=== PATIENT | male | born 1995 | race Caucasian/White ===

== ENCOUNTER 2025-05-29 17:51 | Emergency (ER) | payer OTHER, SELFPAY ==
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
[2025-05-29 17:49] VITALS: BP 141/94; PULSE 112; RESP 16; TEMP 36.6; O2SAT 97
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
[2025-05-29 18:27] LABS: Hematocrit 42.9 % (42.0-52.0); Hemoglobin 14.5 g/dL (14.0-18.0); Immature Granulocyte Percent A 0.7 % (0-0.5); Lymphocytes Absolute Auto 2.88 K/mm3 (0.9-3.2); Mean Corpuscular HGB Conc 33.8 g/dl (32-36); Mean Corpuscular Hemoglobin 29.8 pg (26-34); Mean Corpuscular Volume 88.3 fl (80-100); Nucleated Red Blood Cells Absolute Auto 0.000 K/mm3 (0.0-0.012); Nucleated Red Blood Cells Perc 0.0 % (0.0-0.2); Platelet Count Result 282 k/mm3 (150-375); Red Blood Count 4.86 M/mm3 (4.6-6.20); White Blood Count 10.2 K/mm3 (4.5-10.0)
[2025-05-29 18:36] LABS: Alanine Aminotransferase 57 U/L (6-50); Albumin Level 4.6 g/dL (3.5-5.1); Alkaline Phosphatase 83 U/L (38-126); Anion Gap 12 mmol/L (4-12); Aspartate Amino Transferase 41 U/L (17-59); Bilirubin,Total 0.6 mg/dL (0.2-1.3); Blood Urea Nitrogen 17 mg/dL (9-20); Calcium 9.2 mg/dL (8.4-10.2); Carbon Dioxide 24 mmol/L (22-30); Chloride 102 mmol/L (98-107); Estimated CRCL calculation 103 ml/min; Estimated Glomerular Filt Rate > 60; Glucose 99 mg/dL (65-110); Potassium 3.6 mmol/L (3.4-5.0); Sodium 138 mmol/L (137-145); Total Protein 7.9 g/dL (6.3-8.2)
[2025-05-29 18:55] LABS: Add Urine Microscopic? NO; Appearance Urine Clear (Clear); Glucose Urine UA Negative (Negative); Leukocyte Esterase Ur Negative LEU/UL (Negative); Nitrate Urine Negative (Negative); Specific Grav Ur 1.029 (1.001-1.035)
--- OUTSIDE RECORDS SUMMARY | 2025-05-29 19:12 | XMS_ITS | Clinical Summary ---
Author Organization [facility] Address [address] [place] [address] Care Team Providers Care Drilling Inspector Name Role Phone Vika Ferrari NP Primary Care Provider [phone] Allergies No known active allergies Medications No known medications Active Problems Problem Noted Date Diagnosed Date Pain in joint involving multiple sites Overview (01/15/2021): Reports wrist, knee, ankle, hip, and shoulder joint pain. Comes and goes. No injury. No previous work up. No family hx of RA. Assessment & Plan (01/15/2021 3:31 PM CDT): Labs ordered. Will follow up with results. Acute non-recurrent maxillary sinusitis Overview (01/15/2021): Symptoms started 2 days ago. Nasal drainage, sore throat, dry cough, and low grade temp- somewhat improving, but still present. Brother has been ill and he has been around him. Not using any OTC medications. Assessment & Plan (01/15/2021 3:34 PM CDT): Rapid covid negative. Will send PCR Rapid strep negative. Throat culture sent for confirmation Advised flonase and antihistamines Tylenol/Ibuprofen and salt water gargles for throat discomfort. Immunizations Immunization Administration Dates Next Due Dtap 05/14/2000 Dtp 02/15/1996 Dtp/Hib 05/19/1997,09/23/1996,08/09/1996 H1N1 2009 Influenza Vaccine 07/05/2009 Hepatitis B Pediatric 08/09/1996,02/15/1996,09/14 Hib 02/15/1996 MMR 05/14/2000,09/23/1996 Meningococcal 03/28/2010 Opv 09/23/1996,08/09/1996,02/15/1996 Polio IPV (Ipol) 05/14/2000 Tdap (Generic) 03/28/2010 Family History Medical History Relation Comments No Known Problems Brother No Known Problems Father Diabetes Maternal Grandmother No Known Problems Mother Thyroid Paternal Grandmother No Known Problems Sister Relation Status Comments Brother Alive Father Alive Maternal Grandfather Alive Maternal Grandmother Alive Mother Alive Paternal Grandfather Alive Paternal Grandmother Alive Sister Alive Social History Tobacco Use Types Packs/Day Years Used Date Smoking Tobacco: Never Smokeless Tobacco: Never Alcohol Use Standard Drinks/Week Comments Yes 0 (1 standard drink = 0.6 oz pur e alcohol) rarely PHQ-2 Answer Date Recorded PHQ-2 Score - If the patient scores above 3, please move on to questions 3-9 0 01/15/2021 Sex and Gender Information Value Date Recorded Sex Assigned at Not on file Legal Sex Male 8:53 PM CDT Gender Identity Not on file Sexual Orientation Not on file Last Filed Vital Signs Vital Sign Reading Time Taken Comments Blood Pressure 122/70 01/15/2021 2:42 PM CDT Pulse 76 01/15/2021 2:42 PM CDT Temperature 37.3 C (99.1 F) 01/15/2021 2:42 PM CDT Respiratory Rate 20 01/15/2021 2:42 PM CDT Oxygen Saturation 98% 01/15/2021 2:42 PM CDT Inhaled Oxygen Concentration - - Weight 111.6 kg (246 lb) 01/15/2021 2:42 PM CDT Height 176.5 cm (5' 9.5) 01/15/2021 2:42 PM CDT Body Mass Index 35.81 01/15/2021 2:42 PM CDT Plan of Treatment Health Maintenance Due Date Last Done Comments Annual Physical 1998 Hepatitis C 2013 DTaP, Tdap and Td Vaccines (3 - Td or Tdap) 03/28/2020 03/28/2010, 05/14/2000, 05/19/1997, Additional history exists HPV Vaccines (1 - 3-dose SCDM series) 2022 COVID-19 Vaccine ( season) 2025 01/01/2021, 12/11/2020 Hepatitis B Vaccines Completed 08/09/1996, 02/15/1996, 1995 Meningococcal Vaccine Aged Out 03/28/2010 No augusta jorge a eligible based on patient's age to complete this topic Meningococcal B Vaccine Aged Out No l onger eligible based on patient's age to complete this topic Pneumococcal Vaccine: Pediatrics (0 to 5 Years) and At-Risk Patients (6 to 49 Years) Aged Out No longer eligible based on patient's age to complete this topic RSV Immunizations Under 20 Months Aged Out No longer eligible based on patient's age to complete this topic Insurance Care Teams Drilling Inspector Relationship Specialty Start Date End Date Vika Ferrari NP PCP - General Nurse Practitioner Family 01/15/21
[2025-05-29 20:00] VITALS: BP 140/81; PULSE 104; RESP 18; O2SAT 100
[2025-05-29] MEDS: HYDROcodone/acetaminophen (*CRX) 7.5-325 MG TABLET 1 TAB PO (21:08)
[2025-05-29] MEDS: KETOROLAC 15 MG/ML VIAL (*BKC) IV PUSH (21:08)
[2025-05-29] MEDS: TIZANIDINE HCL 2 MG TABLET PO (23:22)
== END 2025-05-29 23:27 | disposition home or self-care (01) ==
PROVIDERS: Emergency Provider Registered Nurse
DX: S06.0X0A Concussion without loss of consciousness, initial encounter (principal); S13.4XXA Sprain of ligaments of cervical spine, initial encounter; S20.219A Contusion of unspecified front wall of thorax, initial encounter; V49.40XA Driver injured in collision with unspecified motor vehicles in traffic accident, initial encounter
CPT/HCPCS: 36415; 70450; 71260; 72125; 74177; 80053; 81003; 85025; 96374; 99284; A9270; J1885; Q9967